=== PATIENT | male | born 1985 | race Caucasian/White ===

== ENCOUNTER 2016-06-22 20:56 | Emergency (ER) | payer OTHER ==
[2016-06-23] MEDS ORDERED: LORazepam 0.5 MG TABLET PO STA (01:20)
[2016-06-23] MEDS ORDERED: LORazepam 0.5 MG TABLET ONE (01:21)
== END 2016-06-23 01:28 | disposition home or self-care (01) ==
DX: F10.10 Alcohol abuse, uncomplicated (principal)
CPT/HCPCS: 36415; 80053; 83690; 85025; 99283; A9270